=== PATIENT | male | born 1975 | race Caucasian/White ===

== ENCOUNTER → 2017-02-15 | Outpatient (CLI) | payer OTHER ==
--- NOTE | 2017-02-15 22:07 | MR ---
EXAMINATION TYPE: MR brain wo con DATE OF EXAM: 02/15/2017 COMPARISON: NONE HISTORY: 41-year-old male with headache TECHNIQUE: Multiplanar, multisequence images of the brain and brainstem were acquired without IV con trast. Diffusion weighted imaging is performed. FINDINGS: No evidence for acute infarction, hemorrhage, mass, mass effect, midline shift, herniation, effacemen t of basal cisterns, or extra-axial fluid collection. The ventricles and sulci are age-appropriate. Major intracranial flow voids are intact. T2/FLAIR weighted sequences show a solitary 3 mm focus of bright signal in the subcortical right fron randi lobe on axial image 18. This is a nonspecific finding of questionable clinical significance. Midline structures demonstrate normal morphology. The craniocervical junction is normal. Mild mucosal thickening within the ethmoid air cells. Globes are intact. IMPRESSION: 1. No acute intracranial abnormality seen. 2. Solitary 3 mm bright signal focus in the right frontal white matter is of questionable clinical si gnificance. In the setting of chronic migraines, this could represent a small focus of ischemic demye lination.. 3. Mild chronic ethmoid sinus disease. 4. MR angiography reported separately.
--- NOTE | 2017-02-15 22:13 | MR ---
EXAMINATION TYPE: MR angio head wo con DATE OF EXAM: 02/15/2017 COMPARISON: NONE HISTORY: 41-year-old male with Headaches TECHNIQUE: High-resolution 3-D [id number] imaging of the [place]. 3-D rotational reconst ructions generated I dedicated independent workstation. 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 The basilar artery and internal carotid arteries are widely patent. No significant stenosis or arteri al occlusion. Additional congenital variation with an azygos configuration to the anterior cerebral artery. No aneurysmal change is seen particularly at the azygos KIMBER bifurcation. IMPRESSION: 1. 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 2. 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 3. No significant stenosis, arterial occlusion, or aneurysmal change.
== END | disposition home or self-care (01) ==
LOC: RADMRIMAIN 15:10
PROVIDERS: ATTEND Psychiatry & Neurology Neurology
DX: G43.909 Migraine, unspecified, not intractable, without status migrainosus (principal); J32.2 Chronic ethmoidal sinusitis
CPT/HCPCS: 70544; 70551

== ENCOUNTER 2020-05-28 09:50 | Emergency (ER) | payer OTHER ==
[2020-05-28 10:10] VITALS: BP 136/88; PULSE 69; RESP 18; TEMP 98
--- NOTE | 2020-05-28 10:44 | ED ---
General Adult HPI - General Chief complaint: Upper Respiratory Infection Stated complaint: Covid+, SOB Time Seen by Provider: 05/28/20 10:10 Source: patient, RN notes reviewed, old records reviewed Mode of arrival: ambulatory Limitations: no limitations - History of Present Illness Initial comments: This is a 45-year-old male who presents emergency department stating that he was tested positive for COVID 12 days ago. Patient comes in today complaining of a consistent cough and the fact that he can't stop coughing. Patient states she's mild short of breath but nothing significant per patient's chest pain or palpitations. Patient denies abdominal pain patient denies any loss of a smoker patient denies any diarrhea. - Related Data Previous Rx's Medication Instructions Recorded Albuterol Inhaler [Ventolin Hfa 2 puff INHALATION RT-QID #1 puff 05/28/20 Inhaler] Benzonatate [Tessalon Perles] 200 mg PO TID #15 capsule 05/28/20 Allergies Allergy/AdvReac Type Severity Reaction Status Date / Time No Known Allergies Allergy Verified 05/28/20 10:08 Review of Systems ROS Statement: Those systems with pertinent positive or pertinent negative responses have been documented in the HPI. ROS Other: All systems not noted in ROS Statement are negative. Past Medical History Past Medical History: No Reported History History of Any Multi-Drug Resistant Organisms: None Reported Additional Past Surgical History / Comment(s): R ankle Past Psychological History: No Psychological Hx Reported Smoking Status: Never smoker Past Alcohol Use History: None Reported Past Drug Use History: None Reported General Exam - General Exam Comments Initial Comments: GENERAL: Patient is well-developed and well-nourished. Patient is nontoxic and well-h ydrated and is in no acute distress. ENT: Neck is soft and supple. No significant lymphadenopathy is noted. Oropharynx is clear. Moist mucous membranes. Neck has full range of motion without elic iting any pain. EYES: The sclera were anicteric and conjunctiva were pink and moist. Extraocular movements were intact and pupils were equal round and reactive to light. Eyelids were unremarkable. PULMONARY: Unlabored respirations. Good breath sounds bilaterally. No audible rales rhonchi or wheezing was noted. CARDIOVASCULAR: There is a regular rate and rhythm patient is a 2/6 murmur ABDOMEN: Soft and nontender with normal bowel sounds. SKIN: Skin is clear with no lesions or rashes and otherwise unremarkable. NEUROLOGIC: Patient is alert and oriented x3. Cranial nerves II through XII are grossly intact. Motor and sensory are also intact. Normal speech, volume and content. Symmetrical smile. MUSCULOSKELETAL: Normal extremities with adequate strength and full range of motion. LYMPHATICS: No significant lymphadenopathy is noted PSYCHIATRIC: Normal psychiatric evaluation. Limitations: no limitations Course Vital Signs 05/28/20 10:08 Temperature 98 F Pulse Rate 69 Respiratory 18 Rate Blood Pressure 136/88 O2 Sat by Pulse 99 Oximetry Medical Decision Making - Medical Decision Making Chest x-ray shows a little infiltrate in the right base Disposition Clinical Impression: Pneumonia due to COVID-19 virus Disposition: HOME SELF-CARE Condition: Good Instructions (If sedation given, give patient instructions): Coronavirus Disease 2019 (COVID-19) Prescriptions: Benzonatate [Tessalon Perles] 200 mg PO TID #15 capsule Albuterol Inhaler [Ventolin Hfa Inhaler] 2 puff INHALATION RT-QID #1 puff Is patient prescribed a controlled substance at d/c from ED?: No Referrals: None,Stated [Primary Care Provider] - 1-2 days Time of Disposition: 10:44
--- NOTE | 2020-05-28 10:44 | XR ---
EXAMINATION TYPE: XR chest 2V DATE OF EXAM: 05/28/2020 COMPARISON: NONE HISTORY: Chest pain TECHNIQUE: Frontal and lateral views of the chest are obtained. FINDINGS: There is no focal air space opacity. No evidence for pneumothorax. No pleural effusion. The cardiac silhouette size is within normal limits. The osseous structures are grossly intact. IMPRESSION: 1. No acute cardiopulmonary process.
== END 2020-05-28 10:48 | disposition home or self-care (01) ==
LOC: EC 09:50
DX: U07.1 COVID-19 (principal); J12.82 Pneumonia due to coronavirus disease 2019
CPT/HCPCS: 71046; 99284

== ENCOUNTER 2021-06-11 07:24 | Day surgery (SDC) | payer OTHER ==
[2021-06-09 12:04] VITALS: BMI 29.8
[2021-06-11] MEDS ORDERED: SODIUM CHLORIDE 0.9% 500 ML 500 ML IV ONE (07:45)
[2021-06-11 07:50] VITALS: TEMP 99.1
[2021-06-11] MEDS ORDERED: fentaNYL (PF) 50 MCG/ML 2 ML AMP ONE (08:19)
[2021-06-11] MEDS: BENZOCAINE SPRAY 1 CAN MUCOUS MEM ONE ×2 (08:30→08:38)
[2021-06-11] MEDS ORDERED: fentaNYL (PF) 50 MCG/ML 2 ML AMP IVP ONE (08:39)
[2021-06-11] MEDS ORDERED: MIDAZOLAM 2 MG/2 ML VIAL IVP ONE ×2 (08:39→08:41)
--- NOTE | 2021-06-11 09:09 | P.PCN ---
Date of Procedure: 06/11/21 Description of Procedure: Indication: Evaluation of aortic valve Procedure Description: After explaining the procedure to the patient, it's risk and complications, blood pressure, heart rate and O2 saturation were monitored. The throat was sprayed with Cetacaine. Patient received 3 mg intravenous Versed, 50 mcg intravenous fentanyl. The probe was introduced into the esophagus without difficulty. Images were obtained. Following that, the probe was removed. There was no immediate complication. Findings: Left atrial size is mildly dilated, left atrial appendage is normal. Left ventricle size and systolic function are normal. The mitral valve, tricuspid valve are normal. The aortic valve is a bicuspid valve was fused cusp and severe calcification. The aortic valve area by planimetry is 2.2 cm. Ascending aortic size 4.4 cm. Descending thoracic aorta appears to be normal. No pericardial effusion was noted. Contrast bubble study revealed no evidence of shunting across the intra-atrial septum with Valsalva maneuver. Doppler: Pulse wave and color Doppler were obtained and revealed mild mitral and tricuspid regurgitation. Moderate aortic regurgitation was noted was a peak gradient of 45 mmHg and a mean of 27 mmHg. There was no shunting across the intra-atrial septum. Conclusion: 1. Moderately dilated left atrium 2. Normal size and systolic function 3. Bicuspid aortic valve with moderate aortic regurgitation and moderate aortic stenosis 4. Mildly dilated ascending aorta 5. Mild mitral and tricuspid regurgitation
[2021-06-11] MEDS ORDERED: SODIUM CHLORIDE 0.9% 1,000 ML IV SCH (09:15)
[2021-06-11 10:08] VITALS: BP 159/86; PULSE 64; RESP 16
== END 2021-06-11 09:50 | disposition home or self-care (01) ==
LOC: CATHCVL 07:24
PROVIDERS: ATTEND Internal Medicine Interventional Cardiology
DX: Q23.1 Congenital insufficiency of aortic valve (principal); I71.2 Thoracic aortic aneurysm, without rupture; Z20.822 Contact with and (suspected) exposure to COVID-19
CPT/HCPCS: 93312; 93320; 93325; 87635; J2250; J3010

== ENCOUNTER → 2021-06-14 | Outpatient (CLI) | payer OTHER ==
--- NOTE | 2021-06-14 20:34 | CT ---
EXAMINATION TYPE: CT angio chest CT DLP: 1038.90 mGycm, Automated exposure control for dose reduction was used. DATE OF EXAM: 06/14/2021 6:36 PM COMPARISON: None CLINICAL INDICATION:Male, 46 years old with history of I71.2 Thoracic Aortic aneurysm w/o rupture; Th oracic aortic aneurysm TECHNIQUE/CONTRAST: CTA scan of the thorax is performed without and with IV Contrast, patient injected with 100 mL of Iso viral 370, pulmonary embolism protocol. MIP images are created and reviewed. 3-D reformats were creat ed on a separate workstation. FINDINGS: Pulmonary Artery: There is no evidence for a filling defect within the pulmonary vasculature to sugge st acute pulmonary embolism. The pulmonary artery is of normal size. Lungs/Pleura: No evidence of focal consolidation, pleural effusion or pneumothorax. Airway: Large airways are patent. Heart: Heart is mildly enlarged for size there is aortic valve leaflet calcifications Vasculature: Ascending thoracic aorta is dilated measuring up to 4.2 cm. There is mild coronary arter y atherosclerosis changes. Mediastinum: No gross evidence of adenopathy. Musculoskeletal: No acute osseous abnormalities a mild multilevel disc degeneration changes throughou t the spine. Left rib 7 and 8 benign-appearing subcentimeter lucent areas with thin sclerotic rims. Soft Tissues: Mild gynecomastia changes bilaterally. Lower neck: No significant findings. Upper Abdomen: Small splenule is present. IMPRESSION: 1. Mild ascending thoracic aorta ectasia/dilation up to 4.2 cm. 2. Moderate to severe aortic valve leaflet calcifications.
== END | disposition home or self-care (01) ==
LOC: RADCTMAIN 17:45
PROVIDERS: ATTEND Internal Medicine Interventional Cardiology
DX: I77.810 Thoracic aortic ectasia (principal); I70.0 Atherosclerosis of aorta
CPT/HCPCS: 71275; Q9967

== ENCOUNTER → 2022-06-02 | Outpatient (CLI) | payer OTHER ==
--- NOTE | 2022-06-02 15:24 | CT ---
EXAMINATION TYPE: CT angio chest DATE OF EXAM: 06/02/2022 COMPARISON: 06/14/2021 HISTORY: H/O thoracic aorta aneurysm CT DLP: 790.4 mGycm CONTRAST: CTA thoracic aorta with 3-D reconstruction is performed and with IV Contrast, patient injected with 1 00 mL of Isovue 370. Contrast CTA of the thoracic aorta was performed from the lung apex through the upper abdomen. 3D re construction imaging obtained at a separate workstation. CT Chest: THORACIC AORTA: Ascending thoracic aortic aneurysm measuring 4.5 cm AP dimension versus prior measure ment of 4.2 cm. Thoracic aorta is otherwise of normal caliber. Mild atheromatous changes seen. There is no evidence for dissection or periaortic collection. LUNGS: The lungs are clear and free of infiltrate or atelectasis. No pulmonary nodule or mass is det ected. No pleural effusion or CT evidence of interstitial lung disease. MEDIASTINUM: No evidence for mediastinal hematoma. The heart is not enlarged. No evidence for med iastinal mass or adenopathy. Dense calcifications of the aortic valve. HILAR STRUCTURES: No evidence for mass. No hilar adenopathy is appreciated. OTHER: No significant abnormality. IMPRESSION- ascending thoracic aortic aneurysm.
== END | disposition home or self-care (01) ==
LOC: RADCTMAIN 14:14
PROVIDERS: ATTEND Internal Medicine Interventional Cardiology
DX: I71.21 Aneurysm of the ascending aorta, without rupture (principal)
CPT/HCPCS: 71275; Q9967

== ENCOUNTER → 2022-10-11 | Outpatient (CLI) | payer OTHER | END | disposition home or self-care (01) | LOC: LABWHC1 11:33 | PROVIDERS: ATTEND Urology | DX: R97.20 Elevated prostate specific antigen [PSA] (principal) | CPT/HCPCS: 36415; 84153 ==

== ENCOUNTER → 2023-03-15 | Outpatient (CLI) | payer OTHER ==
--- NOTE | 2023-03-17 14:09 | CT ---
CTA CHEST EXAMINATION TYPE: CT angio chest DATE OF EXAM: 03/15/2023 INDICATION: Aortic stenosis thoracic aneurysm CT DLP: 646.40 mGycm, Automated exposure control for dose reduction was used. CONTRAST: Patient injected with 100 ml mL of Isovue 370. COMPARISON: 06/02/2022 TECHNIQUE: CT of the chest is performed on a spiral scan at 2 mm thick sections. Study is performed with intravenous contrast timed for evaluation for pulmonary embolism. This will limit additional po rtions of the evaluation. 3-D MIP images reconstructed by the technologist are reviewed on the compu ter in the coronal and sagittal planes. FINDINGS: No persistent filling defects are evident to suggest an acute pulmonary embolism. No mediastinal or hilar adenopathy enlarged by CT criteria is evident. The ascending aorta diameter at the level of the main pulmonary artery is 4.5 cm. The main pulmonary artery diameter at the bifurcation is 2.5 cm. Aortic root measures 3.4 cm. Transverse dimension of the aortic arch is 3.3 cm. Aorta at the level of the diaphragms is 2.5 cm. Lung windows are clear. Limited CT sections were through the upper abdomen. Upper abdomen appears unremarkable. IMPRESSION: 1. Stable ascending thoracic aortic aneurysm of 4.5 cm.
== END | disposition home or self-care (01) ==
LOC: RADCTMAIN 08:44
PROVIDERS: ATTEND Internal Medicine Interventional Cardiology
DX: I71.21 Aneurysm of the ascending aorta, without rupture (principal); I35.0 Nonrheumatic aortic (valve) stenosis
CPT/HCPCS: 71275; Q9967

== ENCOUNTER 2024-01-15 09:08 | Day surgery (SDC) | payer OTHER ==
[2024-01-11 14:30] VITALS: BMI 29.9
[~2024-01-15 09:08] MED LIST: HYDROmorphone 0.5 MG/0.5 ML SYRINGE IVP PRN; LIDOCAINE 1% (10MG/ML) FOR IV START INTRADERMA PRN; droPERidol 5 MG/2 ML VIAL IVP ONE
[2024-01-15] MEDS: IV FLUID CONTINUATION 1,000 ML IV ONE (09:40)
[2024-01-15] MEDS: ONDANSETRON 4 MG/2 ML VIAL IVP ONE (10:03)
[2024-01-15] MEDS: DEXAMETHASONE SOD PHOSPHATE 4 MG/ML 1 ML VIAL IV ONE (10:03)
[2024-01-15] MEDS: ACETAMINOPHEN TAB 500 MG TAB PO PRN (10:03)
[2024-01-15] MEDS: LACTATED RINGERS 1,000 ML IV SCH (10:04)
[2024-01-15] MEDS: HEPARIN SODIUM,PORCINE 5,000 UNIT/ML 1 ML VIAL SQ PRN (10:04)
--- NOTE | 2024-01-15 11:10 | P.GSHP ---
History of Present Illness H&P Date: 01/15/24 Chief Complaint: Back lipoma x 2 48-year-old male here for excision 2 separate back lesions. 1 in the upper right paramedian location the other is in the left mid back region. Both mildly sore at times. Both increasing in size. No changes since the recent history and physical from a little over a month ago. Past Medical History Past Medical History: Hyperlipidemia Additional Past Medical History / Comment(s): LIPOMAS ON BACK, AORTIC STENOSIS- BEING MONITORED History of Any Multi-Drug Resistant Organisms: None Reported Past Surgical History: Orthopedic Surgery Additional Past Surgical History / Comment(s): R ankle, SAMUEL, Past Anesthesia/Blood Transfusion Reactions: No Reported Reaction Smoking Status: Former smoker - Past Family History Mother Family Medical History: No Reported History Medications and Allergies Home Medications Medication Instructions Recorded Confirmed Type Evolocumab [Repatha Syringe] 0 mg SQ Q14D 01/11/24 01/15/24 History Allergies Allergy/AdvReac Type Severity Reaction Status Date / Time No Known Allergies Allergy Verified 01/15/24 09:37 Surgical - Exam Vital Signs Temp Pulse Resp BP Pulse Ox 97.6 F 66 16 154/82 96 01/15/24 09:47 01/15/24 09:47 01/15/24 09:47 01/15/24 09:47 01/15/24 09:47 Physical exam: General: Well-developed, well-nourished HEENT: Normocephalic, sclerae nonicteric Abdomen: Nontender, nondistended Extremities: No edema, 2 separate palpable masses subcutaneous 1 on the right- hand side measuring 5 x 4 cm 1 on the left-hand side slightly inferior measuring 7 cm Neuro: Alert and oriented Assessment and Plan (1) Lipoma of back Narrative/Plan: 48-year-old male with back lipoma x 2. Will proceed with surgical excision at this time both lesions. Current Visit: Yes Status: Acute Code(s): D17.1 - BENIGN LIPOMATOUS NEOPLASM OF SKIN, SUBCU OF TRUNK SNOMED Code(s): 366887622
[2024-01-15] MEDS ORDERED: SUCCINYLCHOLINE CHLORIDE 200 MG/10 ML VIAL IV ONE (11:13)
[2024-01-15] MEDS ORDERED: fentaNYL (PF) 50 MCG/ML 2 ML AMP ONE (11:13)
[2024-01-15] MEDS ORDERED: MIDAZOLAM 2 MG/2 ML VIAL ONE (11:13)
[2024-01-15] MEDS ORDERED: LIDOCAINE 1% INJ 10MG/ML (20 ML MDV) ONE (11:13)
[2024-01-15] MEDS ORDERED: PROPOFOL 10 MG/ML 20 ML VIAL IV ONE (11:13)
[2024-01-15] MEDS ORDERED: PHENYLEPHRINE 10 MG/ML VIAL ONE (11:13)
[2024-01-15] MEDS ORDERED: ePHEDrine 50 MG/ML 1 ML VIAL ONE (11:13)
[2024-01-15] MEDS ORDERED: WATER FOR INJECTION, STERILE 10 ML VIAL IV ONE (11:13)
[2024-01-15] MEDS: BUPIVACAINE (PF) 0.25% 30 ML VIAL SQ ONE ×2 (11:47→12:21)
[2024-01-15] MEDS: LACTATED RINGERS 1,000 ML IV ONE (11:48)
[2024-01-15] MEDS ORDERED: NALOXONE 0.4 MG/ML 1 ML VIAL IV PRN (12:24)
--- NOTE | 2024-01-15 12:29 | P.OP ---
Date of Procedure: 01/15/24 Procedure(s) Performed: PREOPERATIVE DIAGNOSIS: Lipoma bilateral back POSTOPERATIVE DIAGNOSIS: Same PROCEDURE: Excision bilateral back lipomas with intermediate closure, subfascial SURGEON: Bautista EBL: 5 cc ANESTHESIA: General COMPLICATIONS: None OPERATIVE PROCEDURE: Patient placed in the right decubitus position. The patient's back was prepped and draped sterilely. A horizontal incision was first made overlying the right upper paramedian mass. Dissection through the superficial fat and into the fascia took place using lecture cautery. The patient had a lobulated lipomatous mass measuring 7 x 4 cm. There were multiple pseudopolyps present. This was fully excised using a combination of blunt dis section and cautery. The subcutaneous layers were closed using interrupted 3-0 Vicryl sutures and the skin using a running 4-0 Monocryl subcuticular stitch. The left sided mass was then addressed in a similar fashion. This was slightly more lateral than the right side had been and inferior as well. A horizontal incision was again made overlying this area. Subcutaneous tissues were divided using electrocautery. This was again noted to be intermixed with the muscle of the back. This was excised using both blunt dissection and cautery. This measured 8 x 5 cm in size and again was lobulated in appearance. Both were sent to pathology. Subcutaneous tissues on the left-hand side was closed using 3-0 Vicryl sutures and the skin using a running 4-0 Monocryl subcuticular stitch. Length of intermediate closure was 14 cm. Skin glue and sterile dressings applied to both locations. DISPOSITION: Stable to recovery room
[2024-01-15 12:57] VITALS: TEMP 98
[2024-01-15 13:53] VITALS: BP 137/76; PULSE 87; RESP 18
== END 2024-01-15 14:20 | disposition home or self-care (01) ==
LOC: OR 09:08
PROVIDERS: ATTEND Surgery
DX: D17.1 Benign lipomatous neoplasm of skin and subcutaneous tissue of trunk (principal); E78.5 Hyperlipidemia, unspecified; I35.0 Nonrheumatic aortic (valve) stenosis; Z89.441 Acquired absence of right ankle; Z87.891 Personal history of nicotine dependence
CPT/HCPCS: 21931; J1644; J1100; J0690; J2405; J0665; 88304

== ENCOUNTER → 2024-03-06 | Outpatient (CLI) | payer OTHER ==
--- NOTE | 2024-03-06 16:35 | CT ---
EXAMINATION TYPE: CT angio chest DATE OF EXAM: 03/06/2024 COMPARISON: 03/15/2023 CLINICAL INDICATION: Male, 49 years old with history of I71.20 THORACIC AORTIC ANEURYSM; PHH, Thoraci c aortic aneurysm w.o rupture TECHNIQUE: CTA scan of the thorax is performed with IV Contrast, patient injected with 100 mL of Isovue 370, pul monary embolism protocol. MIP images are created and reviewed. 3-D postprocessing was performed. CT DLP: 932.[address] CTDI: mGy Automated exposure control for dose reduction was used. FINDINGS: There has been interval increase in the aortic root which is increased from 3.4 cm to 4.1 cm. There i s marked calcification of the aortic valve. The graft there is been a significant interval increase i n the ascending thoracic aortic aneurysm which is now 4.8 cm, previously 4.5 cm. There is no pulmonary embolism. There is no mediastinal, hilar or axillary adenopathy. There is moderate cardiomegaly There is no suspicious lung mass or nodule. There is no airspace consolidation or abnormal interstiti al density. There is no pleural effusion or pneumothorax. Limited scanning through the upper abdomen reveals no gross abnormality. No focal osseous lesions are seen. IMPRESSION: 1. Increase in size in both the aortic root which is 4.1 cm with calcification and increase in size i n the thoracic aortic aneurysm which is 4.8 cm. See above. 2. Moderate cardiomegaly. 3. No acute cardiopulmonary disease or pulmonary nodules. [facility], , 03/06/2024 4:32 PM
== END | disposition home or self-care (01) ==
LOC: RADCTMAIN 15:13
PROVIDERS: ATTEND Internal Medicine Interventional Cardiology
DX: I71.20 Thoracic aortic aneurysm, without rupture, unspecified (principal); I51.7 Cardiomegaly
CPT/HCPCS: 71275; Q9967

== ENCOUNTER → 2024-03-28 | Outpatient (CLI) | payer OTHER ==
[2024-03-28 19:05] LABS: HCT 48.5 % (39.6-50.0); HGB 16.2 g/dL (13.0-17.0); MCH 28.1 pg (27.0-32.0); MCHC 33.4 g/dL (32.0-37.0); MCV 84.2 FL (80.0-97.0); NRBC Per 100 WBC 0 X 10*3/uL (0.00-0.01); Platelet Count 256 X 10*3/uL (140-440); RBC 5.76 X 10*6/uL (4.40-5.60); RDW 12.2 % (11.5-14.5); WBC 7.51 X 10*3/uL (4.50-10.00)
[2024-03-28 20:09] LABS: Carbon Dioxide 27.5 mmol/L (21.6-31.8); Chloride 103 mmol/L (96-109); Potassium 5.4 mmol/L (3.5-5.5); Sodium 140 mmol/L (135-145)
== END | disposition home or self-care (01) ==
LOC: LABWHC1 13:41
PROVIDERS: ATTEND Internal Medicine Interventional Cardiology
DX: Z01.812 Encounter for preprocedural laboratory examination (principal); Q23.1 Congenital insufficiency of aortic valve
CPT/HCPCS: 36415; 80051; 82565; 84520; 85027

== ENCOUNTER 2024-04-17 06:19 | Day surgery (SDC) | payer OTHER ==
[2024-04-11 15:24] VITALS: BMI 29.9
[~2024-04-17 06:19] MED LIST changes: -HYDROmorphone 0.5 MG/0.5 ML SYRINGE IVP PRN; -LIDOCAINE 1% (10MG/ML) FOR IV START INTRADERMA PRN; +MIDAZOLAM 2 MG/2 ML VIAL IV PRN; -droPERidol 5 MG/2 ML VIAL IVP ONE; +fentaNYL (PF) 50 MCG/ML 5 ML AMP IVP PRN
[2024-04-17] MEDS ORDERED: BENZOCAINE SPRAY 1 EACH MM PRN (06:30)
[2024-04-17 06:55] VITALS: RESP 16; TEMP 98.6
[2024-04-17] MEDS ORDERED: SODIUM CHLORIDE 0.9% 500 ML 500 ML IV SCH (07:00)
[2024-04-17] MEDS: SODIUM CHLORIDE 0.9% 500 ML 500 ML IV ONE (07:13)
[2024-04-17] MEDS: MIDAZOLAM 2 MG/2 ML VIAL IVP ONE ×2 (07:24→07:28)
[2024-04-17] MEDS: BENZOCAINE SPRAY 1 EACH MM ONE (07:24)
[2024-04-17] MEDS: fentaNYL (PF) 50 MCG/1 ML VIAL IVP ONE (07:26)
--- NOTE | 2024-04-17 07:51 | P.PCN ---
Date of Procedure: 04/17/24 Description of Procedure: Indication: Aortic stenosis Procedure Description: After explaining the procedure to the patient, it's risk and complications, blood pressure, heart rate and O2 saturation were monitored. The throat was sprayed with Cetacaine. Patient received 3 mg intravenous Versed, 50 mcg intra venous fentanyl. The probe was introduced into the esophagus without difficulty. Images were obtained. Following that, the probe was removed. There was no immediate complication. Findings: Left atrial size is normal and left atrial appendage is normal. Left ventricular systolic function is normal. The mitral and tricuspid valve are normal. Aortic valve is a bicuspid valve, severely calcified with reduced opening. Descending thoracic aorta appears to be normal. Ascending aorta is dilated, measuring up to 4.5 cm. No pericardial effusion was noted. Contrast bubble study revealed no shunting across the interatrial septum with Valsalva maneuver. Doppler: Pulse wave and color Doppler were obtained, and revealed mild mitral and tricuspid regurgitation with severe aortic regurgitation. The gradient across the aortic valve appears to be underestimated. No shunting was noted across the interatrial septum. Conclusion: 1. Normal ventricle size and systolic function 2. Bicuspid aortic valve with severe calcifications and severe aortic regurgitation with reduced opening. The gradient appears to be underestimated by Doppler. 3. Mild mitral and tricuspid regurgitation 4. Dilated ascending aorta 5. No shunting across the intra-atrial septum Duration of sedation: 21 minutes
[2024-04-17] MEDS ORDERED: NON FORMULARY DRUG (Evolocumab [Repatha Syringe] 140 MG/ML Each) SQ SCH (08:00)
[2024-04-17 08:42] VITALS: BP 145/80; PULSE 74
[2024-04-17] MEDS ORDERED: ASPIRIN 81 MG PO SCH (09:00)
== END 2024-04-17 09:03 | disposition home or self-care (01) ==
LOC: CATHCVL 06:19
PROVIDERS: ATTEND Internal Medicine Interventional Cardiology
DX: I25.10 Atherosclerotic heart disease of native coronary artery without angina pectoris (principal); I08.2 Rheumatic disorders of both aortic and tricuspid valves; I71.20 Thoracic aortic aneurysm, without rupture, unspecified; I73.9 Peripheral vascular disease, unspecified; F17.210 Nicotine dependence, cigarettes, uncomplicated; I10 Essential (primary) hypertension; E78.2 Mixed hyperlipidemia; Q23.1 Congenital insufficiency of aortic valve; Z79.82 Long term (current) use of aspirin; Z79.899 Other long term (current) drug therapy
CPT/HCPCS: 93312; 93320; 93325; J2250; J3010

== ENCOUNTER 2024-06-17 16:05 | Inpatient (IN) | payer OTHER ==
--- NOTE | 2024-06-17 16:31 | ED ---
General Adult HPI - General Chief complaint: Arrhythmia/Palpitations Stated complaint: Palpitations Time Seen by Provider: 06/17/24 16:12 Source: patient, EMS, RN notes reviewed Mode of arrival: EMS Limitations: no limitations - History of Present Illness Initial comments: Patient is a 49-year-old male present to the emergency department with concern for palpitations. Onset of symptoms was yesterday. Patient feels like his heart is racing. No history of similar symptoms previously. No history of dysrhythmia. INR this morning was 1.3. Patient does see Dr. Cronin. Patient did have recent open heart CABG, valve replacement, mechanical and aortic graft. Patient is having no chest discomfort or dyspnea. No leg pain or leg swelling. - Related Data Home Medications Medication Instructions Recorded Confirmed Evolocumab [Repatha Syringe] 140 mg SQ Q14D 01/11/24 06/17/24 Acetaminophen Tab [Tylenol] 650 mg PO Q6H PRN 06/17/24 06/17/24 Atorvastatin [Lipitor] 10 mg PO DAILY 06/17/24 06/17/24 Furosemide [Lasix] 20 mg PO DAILY 06/17/24 06/17/24 Potassium Chloride [Klor-Con M20] 20 meq PO DAILY 06/17/24 06/17/24 Tamsulosin HCl [Flomax] 0.4 mg PO DAILY 06/17/24 06/17/24 Warfarin [Coumadin] 2.5 mg PO W/SUPPER 06/17/24 06/17/24 carvediloL [Coreg] 25 mg PO BID 06/17/24 06/17/24 Allergies Allergy/AdvReac Type Severity Reaction Status Date / Time No Known Allergies Allergy Verified 06/17/24 16:09 Review of Systems ROS Statement: Those systems with pertinent positive or pertinent negative responses have been documented in the HPI. ROS Other: All systems not noted in ROS Statement are negative. Constitutional: Denies: fever Eyes: Denies: eye pain ENT: Denies: ear pain Respiratory: Denies: cough, dyspnea Cardiovascular: Reports: palpitations. Denies: chest pain Musculoskeletal: Denies: back pain Past Medical History Past Medical History: Hyperlipidemia Additional Past Medical History / Comment(s): LIPOMAS ON BACK, AORTIC STENOSIS- BEING MONITORED History of Any Multi-Drug Resistant Organisms: None Reported Past Surgical History: Orthopedic Surgery Additional Past Surgical History / Comment(s): R ankle, SAMUEL Past Anesthesia/Blood Transfusion Reactions: No Reported Reaction Past Psychological History: No Psychological Hx Reported Smoking Status: Former smoker - Past Family History Mother Family Medical History: No Reported History General Exam Limitations: no limitations General appearance: alert, in no apparent distress Head exam: Present: normocephalic Eye exam: Present: normal appearance Neck exam: Present: normal inspection Respiratory exam: Present: normal lung sounds bilaterally Cardiovascular Exam: Present: tachycardia, irregular rhythm Expanded Peripheral pulses: 2+: Radial (R), Radial (L), Posterior Tibialis (R), Posterior Tibialis (L) GI/Abdominal exam: Present: soft. Absent: tenderness Extremities exam: Present: normal inspection. Absent: pedal edema, calf tende rness Neurological exam: Present: alert Psychiatric exam: Present: normal affect, normal mood Skin exam: Present: normal color Course Vital Signs 06/17/24 06/17/24 06/17/24 16:06 16:58 17:20 Temperature 98.2 F Pulse Rate 151 H 152 H 156 H Respiratory 18 18 18 Rate Blood Pressure 133/98 122/81 111/95 O2 Sat by Pulse 99 96 97 Oximetry 06/17/24 17:44 Temperature Pulse Rate 152 H Respiratory 18 Rate Blood Pressure 109/90 O2 Sat by Pulse 94 L Oximetry EKG Findings - EKG Results: EKG: interpreted by ERMD (Left axis. Poor R wave progression. Nonspecific T waves.) EKG shows: tachycardia, atrial fibrillation Medical Decision Making - Medical Decision Making Was pt. sent in by a medical professional or institution (, PA, AIRCRAFT LAYOUT WORKER, urgent care, hospital, or [facility]...) When possible be specific @ -No Did you speak to anyone other than the patient for history (EMS, parent, family, police, friend...)? What history was obtained from this source @ -No Did you review nursing and triage notes (agree or disagree)? Why? @ -I reviewed and agree with nursing and triage notes Were old charts reviewed (outside hosp., previous admission, EMS record, old EKG, old radiological studies, urgent care reports/EKG's, [facility] records)? Report findings @ -No old charts were reviewed Differential Diagnosis (chest pain, altered mental status, abdominal pain women, abdominal pain men, vaginal bleeding, weakness, fever, dyspnea, syncope, headache, dizziness, GI bleed, back pain, seizure, CVA, palpatations, mental health, musculoskeletal)? @ -Differential Palpitations Ventricular arrhythmias, atrial arrhythmias, myocardial infarction, anemia, thyrotoxicosis, electrolyte imbalance, hypokalemia, pulmonary embolism, pulmonary disease, drugs, alcohol, anxiety, stress.... This is not meant to be an all-inclusive list. EKG interpreted by me (3pts min.). @ -As above X-rays interpreted by me (1pt min.). @ -Chest x-ray shows postoperative changes, small left effusion CT interpreted by me (1pt min.). @ -None done U/S interpreted by me (1pt. min.). @ -None done What testing was considered but not performed or refused? (CT, X-rays, U/S, labs)? Why? @ -None What meds were considered but not given or refused? Why? @ -None Did you discuss the management of the patient with other professionals (professionals i.e. , PA, AIRCRAFT LAYOUT WORKER, lab, RT, psych nurse, social services counselor, excavating contractor, teacher, correctional officer, manager case management)? Give summary @ -Case was discussed with Dr. Sarabia who will admit his patient. He does recommend starting heparin secondary to INR being only 1.1. Was smoking cessation discussed for >3mins.? @ -No Was critical care preformed (if so, how long)? @ -33 minutes critical care time Were there social determinants of health that impacted care today? How? (Home lessness, low income, unemployed, alcoholism, drug addiction, transportation, low edu. Level, literacy, decrease access to med. care, shelter, rehab)? @ -No Was there de-escalation of care discussed even if they declined (Discuss DNR or withdrawal of care, Hospice)? DNR status @ -No What co-morbidities impacted this encounter? (DM, HTN, Smoking, COPD, CAD, Cancer, CVA, ARF, Chemo, Hep., AIDS, mental health diagnosis, sleep apnea, morbid obesity)? @ -Recent CABG/valve replacement/aortic graft Was patient admitted / discharged? Hospital course, mention meds given and route, prescriptions, significant lab abnormalities, going to OR and other pertinent info. @ -Patient presents with new onset A-fib RVR. Darren bagleyip started. Secondary to subtherapeutic INR heparin will also be started. Patient updated on plan. Admission orders written. Cardiology will be placed on consult Undiagnosed new problem with uncertain prognosis? @ -No Drug Therapy requiring intensive monitoring for toxicity (Heparin, Nitro, Insulin, Cardizem)? @ -Cardizem drip, heparin drip Were any procedures done? @ -No Diagnosis/symptom? @ -A-fib with RVR Acute, or Chronic, or Acute on Chronic? @ -Acute Uncomplicated (without systemic symptoms) or Complicated (systemic symptoms)? @ -Default Side effects of treatment? @ -No Exacerbation, Progression, or Severe Exacerbation? @ -No Poses a threat to life or bodily function? How? (Chest pain, [place], [place], pneumonia, PE, COPD, DKA, ARF, appy, cholecystitis, CVA, Diverticulitis, Homicidal, Suicidal, threat to staff... and all critical care pts) @ -Threat to cardiac function - Lab Data Result diagrams: 06/17/24 16:31 06/17/24 16:31 Lab Results 06/17/24 06/17/24 06/17/24 Range/Units 16:31 16:31 16:31 WBC 9.66 (4.50-10.00) 10*3/uL RBC 4.99 (4.40-5.60) 10*6/uL Hgb 14.2 (13.0-17.0) g/dL Hct 41.1 (39.6-50.0) % MCV 82.4 (80.0-97.0) fL MCH 28.5 (27.0-32.0) pg MCHC 34.5 (32.0-37.0) g/dL Plt Count 517 H (140-440) 10*3/uL MPV 9.2 L (9.5-12.2) fL Immature Gran % (Auto) 0.4 % Neutrophils % 73.6 % Lymphocytes % 15.1 % Monocytes % 9.3 % Eosinophils % 1.1 % Basophils % 0.5 % Immature Gran # 0.04 (0.00-0.04) 10*3/uL Neutrophils # 7.10 (1.80-7.70) 10*3/uL Lymphocytes # 1.46 (0.90-5.00) 10*3/uL Monocytes # 0.90 (0.20-1.00) 10*3/uL Eosinophils # 0.11 (0.04-0.35) 10*3/uL Basophils # 0.05 (0.00-0.10) 10*3/uL PT 12.4 (10.0-12.5) sec INR 1.1 (<1.2) APTT 26.3 (22.0-30.0) sec Sodium 137 (137-145) mmol/L Potassium 4.4 (3.5-5.1) mmol/L Chloride 105 (98-107) mmol/L Carbon Dioxide 24 (22-30) mmol/L Anion Gap 8 mmol/L BUN 11 (9-20) mg/dL Creatinine 0.81 (0.66-1.25) mg/dL Est GFR (CKD-EPI)AfAm >90 (>60 ml/min/1.73 sqM) Est GFR (CKD-EPI)NonAf >90 (>60 ml/min/1.73 sqM) Glucose 100 H (74-99) mg/dL Calcium 9.5 (8.4-10.2) mg/dL Magnesium 2.2 (1.6-2.3) mg/dL Total Bilirubin 0.6 (0.2-1.3) mg/dL AST 21 (17-59) U/L ALT 35 (4-49) U/L Alkaline Phosphatase 132 H (38-126) U/L Troponin I (0.000-0.034) ng/mL Total Protein 6.7 (6.3-8.2) g/dL Albumin 3.7 (3.5-5.0) g/dL TSH 1.280 (0.465-4.680) mIU/L 06/17/24 Range/Units 16:31 WBC (4.50-10.00) 10*3/uL RBC (4.40-5.60) 10*6/uL Hgb (13.0-17.0) g/dL Hct (39.6-50.0) % MCV (80.0-97.0) fL MCH (27.0-32.0) pg MCHC (32.0-37.0) g/dL Plt Count (140-440) 10*3/uL MPV (9.5-12.2) fL Immature Gran % (Auto) % Neutrophils % % Lymphocytes % % Monocytes % % Eosinophils % % Basophils % % Immature Gran # (0.00-0.04) 10*3/uL Neutrophils # (1.80-7.70) 10*3/uL Lymphocytes # (0.90-5.00) 10*3/uL Monocytes # (0.20-1.00) 10*3/uL Eosinophils # (0.04-0.35) 10*3/uL Basophils # (0.00-0.10) 10*3/uL PT (10.0-12.5) sec INR (<1.2) APTT (22.0-30.0) sec Sodium (137-145) mmol/L Potassium (3.5-5.1) mmol/L Chloride (98-107) mmol/L Carbon Dioxide (22-30) mmol/L Anion Gap mmol/L BUN (9-20) mg/dL Creatinine (0.66-1.25) mg/dL Est GFR (CKD-EPI)AfAm (>60 ml/min/1.73 sqM) Est GFR (CKD-EPI)NonAf (>60 ml/min/1.73 sqM) Glucose (74-99) mg/dL Calcium (8.4-10.2) mg/dL Magnesium (1.6-2.3) mg/dL Total Bilirubin (0.2-1.3) mg/dL AST (17-59) U/L ALT (4-49) U/L Alkaline Phosphatase (38-126) U/L Troponin I 0.045 H* (0.000-0.034) ng/mL Total Protein (6.3-8.2) g/dL Albumin (3.5-5.0) g/dL TSH (0.465-4.680) mIU/L Critical Care Time Critical Care Time: Yes Disposition Clinical Impression: Atrial fibrillation, Tachycardia Disposition: ADMITTED IP TO THIS HOSP Is patient prescribed a controlled substance at d/c from ED?: No Referrals: Leroy Sarabia MD [Primary Care Provider] - 1-2 days Time of Disposition: 17:53
[2024-06-17 16:44] LABS: Basophils # (A) 0.05 10*3/uL (0.00-0.10); Basophils % (A) 0.5 %; Eosinophils # (A) 0.11 10*3/uL (0.04-0.35); Eosinophils % (A) 1.1 %; HCT 41.1 % (39.6-50.0); HGB 14.2 g/dL (13.0-17.0); Lymphocytes # (A) 1.46 10*3/uL (0.90-5.00); Lymphocytes % (A) 15.1 %; MCH 28.5 pg (27.0-32.0); MCHC 34.5 g/dL (32.0-37.0); MCV 82.4 fL (80.0-97.0); Mean Platelet Volume 9.2 fL (9.5-12.2); Monocytes % (A) 9.3 %; Neutrophils % (A) 73.6 %; Platelet Count 517 10*3/uL (140-440); RBC 4.99 10*6/uL (4.40-5.60); RDW 12.5 % (11.5-14.5); WBC 9.66 10*3/uL (4.50-10.00)
[2024-06-17 16:59] LABS: ALT 35 U/L (4-49); AST 21 U/L (17-59); African American GFR (CKD) >90 (>60 ml/min/1.73 sqM); Albumin 3.7 g/dL (3.5-5.0); Alkaline Phosphatase 132 U/L (38-126); Anion Gap 8 mmol/L; Blood Urea Nitrogen 11 mg/dL (9-20); Calcium 9.5 mg/dL (8.4-10.2); Carbon Dioxide 24 mmol/L (22-30); Chloride 105 mmol/L (98-107); Glucose 100 mg/dL (74-99); Magnesium 2.2 mg/dL (1.6-2.3); Non-African American GFR(CKD) >90 (>60 ml/min/1.73 sqM); Potassium 4.4 mmol/L (3.5-5.1); Sodium 137 mmol/L (137-145); Total Bilirubin 0.6 mg/dL (0.2-1.3); Total Protein 6.7 g/dL (6.3-8.2)
[2024-06-17 17:00] LABS: INR 1.1 (<1.2); Partial Thromboplastin Time 26.3 sec (22.0-30.0); Prothrombin Time 12.4 sec (10.0-12.5)
[2024-06-17] MEDS: DILTIAZEM 5 MG/ML 5 ML VIAL IVP STA (17:02)
[2024-06-17] MEDS: DILTIAZEM 125 MG in DEXTROSE 5% IN WATER 100 ML IV SCH (17:07)
--- NOTE | 2024-06-17 17:39 | XR ---
EXAMINATION TYPE: XR chest 2V DATE OF EXAM: 06/17/2024 5:34 PM COMPARISON: Chest radiographs from 05/28/2020, CTA chest 03/06/2024 TECHNIQUE: XR chest 2V Frontal and lateral views of the chest. CLINICAL INDICATION:Male, 49 years old with history of dysrhythmia; FINDINGS: Lungs/Pleura: Right lung is clear. No pneumothorax. Small left pleural effusion with associated atele ctasis. Pulmonary vascularity: Unremarkable. Heart/mediastinum: Cardiomediastinal silhouette is enlarged. Post surgical changes of the aortic casey ve replacement. Musculoskeletal: No acute osseous pathology. Midline sternotomy wires are noted. IMPRESSION: Small left pleural effusion with associated atelectasis. [facility], , 06/17/2024 5:36 PM
[2024-06-17] MEDS ORDERED: NALOXONE 0.4 MG/ML 1 ML VIAL IV PRN (17:53)
[2024-06-17] MEDS ORDERED: ACETAMINOPHEN TAB 325 MG TAB PO PRN (17:56)
[2024-06-17] MEDS: WARFARIN 3 MG TAB PO ONE (18:36)
[2024-06-17] MEDS: HEPARIN SOD,PORK IN 0.45% NACL 25,000 UNIT in 0.45% NACL 1 250ML.BAG IV SCH (18:48)
[2024-06-17] MEDS: HEPARIN SODIUM 1,000 UN/ML (10ML VL) IV ONE (18:48)
[2024-06-17] MEDS: carvediloL 12.5 MG TAB PO SCH (19:31)
[2024-06-17] MEDS: MAGNESIUM SULFATE-D5W PMX 1 GM in DEXTROSE/WATER 1 100ML.BAG IVPB ONE (19:34)
[2024-06-18 08:40] LABS: Basophils # (A) 0.09 10*3/uL (0.00-0.10); Basophils % (A) 0.9 %; Eosinophils # (A) 0.07 10*3/uL (0.04-0.35); Eosinophils % (A) 0.7 %; HCT 40.7 % (39.6-50.0); HGB 13.5 g/dL (13.0-17.0); Lymphocytes # (A) 1.76 10*3/uL (0.90-5.00); Lymphocytes % (A) 17.5 %; MCHC 33.2 g/dL (32.0-37.0); MCV 84.3 fL (80.0-97.0); Monocytes # (A) 0.83 10*3/uL (0.20-1.00); Monocytes % (A) 8.3 %; Neutrophils # (A) 7.27 10*3/uL (1.80-7.70); Neutrophils % (A) 72.2 %; Platelet Count 472 10*3/uL (140-440); RBC 4.83 10*6/uL (4.40-5.60); RDW 12.8 % (11.5-14.5); WBC 10.06 10*3/uL (4.50-10.00)
[2024-06-18] MEDS: FUROSEMIDE 20 MG TAB PO SCH (08:59)
[2024-06-18] MEDS: TAMSULOSIN 0.4 MG CAP.ER.24H PO SCH (09:01)
[2024-06-18] MEDS: POTASSIUM CHLORIDE ER 20 MEQ TAB.ER PO SCH (09:01)
[2024-06-18] MEDS: ATORVASTATIN 10 MG TAB PO SCH (09:01)
[2024-06-18 09:53] LABS: INR 1.2 (<1.2); Prothrombin Time 13.2 sec (10.0-12.5)
[2024-06-18] MEDS: HEPARIN SODIUM 1,000 UN/ML (10ML VL) IV PRN (10:03)
--- NOTE | 2024-06-18 10:25 | P.CRDCN ---
History of Present Illness History of present illness: HISTORY OF PRESENT ILLNESS: This is a 49-year-old male with a past medical history significant for bicuspid aortic valve with severe AI and severe with recent mechanical aortic valve r eplacement and aortic root replacement along with one-vessel CABG. Patient follows in the office with Dr. Cronin. We have been asked to see the patient in consultation for atrial fibrillation. Patient examined at the bedside. Patient presented to the ER with a chief complaint of palpitations. Patient was found to be in A-fib with RVR. Patient denies any known history of atrial fibrillation. He has since converted to sinus mechanism and is maintaining sinus mechanism this morning. He denies chest pain or pressure. Denies shortness of breath. INR subtherapeutic at 1.2. He has been resumed on Coumadin and initiated on IV heparin. DIAGNOSTICS: - EKG reveals A-fib with RVR - Chest xray small left pleural effusion with associated atelectasis - Laboratory data: WBC 10.06. Hemoglobin 13.5. Platelet count 472. INR 1.2. Sodium 137. Potassium 4.4. BUN 11. Creatinine 0.81. Troponin 0.045. 0.055. 0.046. TSH 1.280. - Current home cardiac medications include Lipitor 10 mg daily, Repatha 140 mg subcu every 14 days, Lasix 20 mg daily, carvedilol 25 mg twice a day, warfarin 2.5 mg with supper - Most recent echocardiogram obtained in March 2024 revealed normal EF, mild TR, bicuspid aortic valve, severe AI, mild MR - Cardiac catheterization history: 03/2024 revealing calcified aortic valve with dilated ascending aorta, severe stenosis in the proximal LAD, mild pulmonary hypertension REVIEW OF SYSTEMS: At the time of my exam: CONSTITUTIONAL: Denies fever or chills. HEENT: Denies blurred vision, vision changes, or eye pain. Denies hemoptysis CARDIOVASCULAR: Denies chest pain. Denies orthopnea. Denies PND. Denies palpitations RESPIRATORY: Denies shortness of breath. GASTROINTESTINAL: Denies abdominal pain. Denies nausea or vomiting. HEMATOLOGIC: Denies bleeding disorders. GENITOURINARY: Denies any blood in urine. SKIN: Denies pruitis. Denies rash. PHYSICAL EXAM: VITAL SIGNS: Reviewed. GENERAL: Well-developed in no acute distress. HEENT: Head is normocephalic. Pupils are equal, round. Sclerae anicteric. Mucous membranes of the mouth are moist. Neck supple. No JVD or thyromegaly LUNGS: Respirations even and unlabored. Lungs essentially clear to auscultation bilaterally. HEART: Regular rate and rhythm. S1 and S2 heard. Mechanical click noted ABDOMEN: Soft. Nondistended. Nontender. EXTREMITIES: Normal range of motion. No clubbing or cyanosis. Peripheral pulses intact. No lower extremity edema NEUROLOGIC: Awake and alert. Oriented x 3. ASSESSMENT: New onset atrial fibrillation with RVR, currently maintaining sinus mechanism Coronary artery disease, s/p one-vessel CABG to the LAD Bicuspid aortic valve; status post mechanical aortic valve replacement and aortic root replacement at [facility] Subtherapeutic INR Hypertension Hyperlipidemia PLAN: Resume home cardiac medications Discontinue IV Cardizem Continue Coumadin. Monitor INR Continue IV heparin until INR is therapeutic Continue telemetry monitoring Further recommendations pending patient course Nurse practitioner note has been reviewed by physician. Signing provider agrees with the documented findings, assessment, and plan of care documented by [employer] as a scribe. Past Medical History Past Medical History: Hyperlipidemia Additional Past Medical History / Comment(s): LIPOMAS ON BACK, AORTIC STENOSIS-BEING MONITORED History of Any Multi-Drug Resistant Organisms: None Reported Past Surgical History: Orthopedic Surgery Additional Past Surgical History / Comment(s): R ankle, SAMUEL Past Anesthesia/Blood Transfusion Reactions: No Reported Reaction Past Psychological History: No Psychological Hx Reported Smoking Status: Former smoker - Past Family History Mother Family Medical History: No Reported History Medications and Allergies Home Medications Medication Instructions Recorded Confirmed Type Evolocumab [Repatha Syringe] 140 mg SQ Q14D 01/11/24 06/17/24 History Acetaminophen Tab [Tylenol] 650 mg PO Q6H PRN 06/17/24 06/17/24 History Atorvastatin [Lipitor] 10 mg PO DAILY 06/17/24 06/17/24 History Furosemide [Lasix] 20 mg PO DAILY 06/17/24 06/17/24 History Potassium Chloride [Klor-Con M20] 20 meq PO DAILY 06/17/24 06/17/24 History Tamsulosin HCl [Flomax] 0.4 mg PO DAILY 06/17/24 06/17/24 History Warfarin [Coumadin] 2.5 mg PO W/SUPPER 06/17/24 06/17/24 History carvediloL [Coreg] 25 mg PO BID 06/17/24 06/17/24 History Allergies Allergy/AdvReac Type Severity Reaction Status Date / Time No Known Allergies Allergy Verified 06/17/24 16:09 Physical Exam Vitals: Vital Signs Temp Pulse Resp BP Pulse Ox 06/18/24 08:58 79 18 118/84 95 06/18/24 07:49 98.2 F 81 18 112/78 94 L 06/18/24 06:01 98.2 F 72 16 103/75 93 L 06/18/24 03:55 91 18 104/80 95 06/17/24 19:29 115 H 18 108/80 100 06/17/24 18:33 131 H 18 107/89 95 06/17/24 18:13 154 H 18 109/73 95 06/17/24 17:44 152 H 18 109/90 94 L 06/17/24 17:20 156 H 18 111/95 97 06/17/24 16:58 152 H 18 122/81 96 06/17/24 16:06 98.2 F 151 H 18 133/98 99 Intake and Output 06/17/24 06/18/24 06/18/24 22:59 06:59 14:59 Intake Total 12.084 91.833 Balance 12.084 91.833 Intake: Intake, IV Titration 12.084 91.833 Amount Diltiazem 125 mg In 12.084 23.333 Dextrose 5% in Water 100 ml @ 5 MG/HR 5 mls/hr IV .Q24H SHERICE Rx#:[id number] Heparin Sod,Pork in 0.45% 68.5 NaCl 25,000 unit In 0.45 % NaCl 1 250ml.bag @ 10. 65 UNITS/KG/HR 10 mls/hr IV .Q24H SHERICE Rx#: [id number] Other: Weight 93.894 kg Results 06/18/24 08:10 06/17/24 16:31 Cardiac Enzymes 06/17/24 06/17/24 06/17/24 Range/Units 16:31 16:31 19:59 AST 21 (17-59) U/L Troponin I 0.045 H* 0.055 H* (0.000-0.034) ng/mL 06/17/24 Range/Units 23:56 AST (17-59) U/L Troponin I 0.046 H* (0.000-0.034) ng/mL Coagulation 06/17/24 06/17/24 Range/Units 16:31 23:56 PT 12.4 (10.0-12.5) sec APTT 26.3 33.4 H (22.0-30.0) sec CBC 06/17/24 06/18/24 Range/Units 16:31 08:10 WBC 9.66 10.06 H (4.50-10.00) 10*3/uL RBC 4.99 4.83 (4.40-5.60) 10*6/uL Hgb 14.2 13.5 (13.0-17.0) g/dL Hct 41.1 40.7 (39.6-50.0) % Plt Count 517 H 472 H (140-440) 10*3/uL Comprehensive Metabolic Panel 06/17/24 Range/Units 16:31 Sodium 137 (137-145) mmol/L Potassium 4.4 (3.5-5.1) mmol/L Chloride 105 (98-107) mmol/L Carbon Dioxide 24 (22-30) mmol/L BUN 11 (9-20) mg/dL Creatinine 0.81 (0.66-1.25) mg/dL Glucose 100 H (74-99) mg/dL Calcium 9.5 (8.4-10.2) mg/dL AST 21 (17-59) U/L ALT 35 (4-49) U/L Alkaline Phosphatase 132 H (38-126) U/L Total Protein 6.7 (6.3-8.2) g/dL Albumin 3.7 (3.5-5.0) g/dL Current Medications Generic Name Dose Route Start Last Admin Trade Name Freq PRN Reason Stop Dose Admin Acetaminophen 650 mg 06/17/24 17:56 Acetaminophen Tab 325 Mg Tab PO Q6H PRN Pain Atorvastatin Calcium 10 mg 06/18/24 09:00 06/18/24 09:01 Atorvastatin 10 Mg Tab PO 10 mg DAILY SHERICE Administration Carvedilol 25 mg 06/17/24 18:30 06/18/24 09:01 Carvedilol 12.5 Mg Tab PO Not Given BID-W/MEALS SHERICE Furosemide 20 mg 04/29/25 09:00 06/18/24 08:59 Furosemide 20 Mg Tab PO 20 mg DAILY SHERICE Administration Heparin Sodium (Porcine) 0 unit 06/17/24 17:53 Heparin Sodium 1,000 Un/Ml (10ml Vl) IV PER PROTOCOL PRN Low PTT Protocol Diltiazem HCl 125 mg/ Dextrose 125 mls @ 5 mls/hr 06/17/24 17:00 06/18/24 06:17 /Water IV 5 mg/hr .Q24H SHERICE 5 mls/hr Titration Protocol 5 MG/HR Heparin Sodium/Sodium Chloride 250 mls @ 10 mls/hr 06/17/24 18:00 06/18/24 01:39 25,000 unit/ Sodium Chloride IV 12.65 units/kg/hr .Q24H SHERICE 11.878 mls/hr Titration Protocol 10.65 UNITS/KG/HR Miscellaneous Information 0 each 06/17/24 18:10 Warfarin Per Pharmacy MISCELLANE DIRECTED PRN PHARMACY DOSING PROTOCOL Naloxone HCl 0.2 mg 06/17/24 17:53 Naloxone 0.4 Mg/Ml 1 Ml Vial IV Q2M PRN Opioid Reversal Potassium Chloride 20 meq 06/18/24 09:00 06/18/24 09:01 Potassium Chloride Er 20 Meq Tab.Er PO 20 meq DAILY SHERICE Administration Tamsulosin HCl 0.4 mg 06/18/24 09:00 06/18/24 09:01 Tamsulosin 0.4 Mg Cap.Er.24h PO 0.4 mg DAILY SHERICE Administration Intake and Output 06/17/24 06/18/24 06/18/24 22:59 06:59 14:59 Intake Total 12.084 91.833 Balance 12.084 91.833 Intake: Intake, IV Titration 12.084 91.833 Amount Diltiazem 125 mg In 12.084 23.333 Dextrose 5% in Water 100 ml @ 5 MG/HR 5 mls/hr IV .Q24H SHERICE Rx#:[id number] Heparin Sod,Pork in 0.45% 68.5 NaCl 25,000 unit In 0.45 % NaCl 1 250ml.bag @ 10. 65 UNITS/KG/HR 10 mls/hr IV .Q24H SHERICE Rx#: [id number] Other: Weight 93.894 kg 06/18/24 08:10 06/17/24 16:31
--- NOTE | 2024-06-18 12:57 | P.HPIM ---
History of Present Illness H&P Date: 06/18/24 Jorge Valles is a 49-year-old male patient who presented to the ER with concerns of palpitations. Patient has a past medical history of aortic root replacement along with one-vessel CABG completed at [facility] a couple weeks ago patient follows with Dr. Cronin in the office,. Patient was found to be in A-fib with RVR patient denies any history of atrial fibrillation. Patient is maintained on Coumadin likely for mechanical valve and was subtherapeutic upon arrival. EKG completed showing atrial flutter tachycardia with RVR rate of 154. Chest x-ray completed showing small left pleural effusion with associated associated atelectasis. Lab work completed showing white blood cell 9.66, hemoglobin 14.2, platelet count 517, INR 1.1 troponin 0.045, 0.055 and 0.046 TSH level 1.280. At this time patient will be admitted patient started on Cardizem and heparin drips. cardiology services consulted. At this time patient is resting comfortably in bed. Patient denies chest pain or shortness of breath. Patient denies nausea vomiting or diarrhea. Patient denies any urinary burning frequency Review of Systems Please refer to HPI otherwise unremarkable Past Medical History Past Medical History: Hyperlipidemia Additional Past Medical History / Comment(s): LIPOMAS ON BACK, AORTIC STENOSIS- BEING MONITORED History of Any Multi-Drug Resistant Organisms: None Reported Past Surgical History: Orthopedic Surgery Additional Past Surgical History / Comment(s): R ankle, SAMUEL Past Anesthesia/Blood Transfusion Reactions: No Reported Reaction Past Psychological History: No Psychological Hx Reported Smoking Status: Former smoker - Past Family History Mother Family Medical History: No Reported History Medications and Allergies Home Medications Medication Instructions Recorded Confirmed Type Evolocumab [Repatha Syringe] 140 mg SQ Q14D 01/11/24 06/17/24 History Acetaminophen Tab [Tylenol] 650 mg PO Q6H PRN 06/17/24 06/17/24 History Atorvastatin [Lipitor] 10 mg PO DAILY 06/17/24 06/17/24 History Furosemide [Lasix] 20 mg PO DAILY 06/17/24 06/17/24 History Potassium Chloride [Klor-Con M20] 20 meq PO DAILY 06/17/24 06/17/24 History Tamsulosin HCl [Flomax] 0.4 mg PO DAILY 06/17/24 06/17/24 History Warfarin [Coumadin] 2.5 mg PO W/SUPPER 06/17/24 06/17/24 History carvediloL [Coreg] 25 mg PO BID 06/17/24 06/17/24 History Allergies Allergy/AdvReac Type Severity Reaction Status Date / Time No Known Allergies Allergy Verified 06/17/24 16:09 Physical Exam Vitals: Vital Signs Temp Pulse Resp BP Pulse Ox 06/18/24 08:58 79 18 118/84 95 06/18/24 07:49 98.2 F 81 18 112/78 94 L 06/18/24 06:01 98.2 F 72 16 103/75 93 L 06/18/24 03:55 91 18 104/80 95 06/17/24 19:29 115 H 18 108/80 100 06/17/24 18:33 131 H 18 107/89 95 06/17/24 18:13 154 H 18 109/73 95 06/17/24 17:44 152 H 18 109/90 94 L 06/17/24 17:20 156 H 18 111/95 97 06/17/24 16:58 152 H 18 122/81 96 06/17/24 16:06 98.2 F 151 H 18 133/98 99 Intake and Output 06/17/24 06/18/24 06/18/24 22:59 06:59 14:59 Intake Total 12.084 91.833 99.775 Balance 12.084 91.833 99.775 Intake: Intake, IV Titration 12.084 91.833 99.775 Amount Diltiazem 125 mg In 12.084 23.333 Dextrose 5% in Water 100 ml @ 5 MG/HR 5 mls/hr IV .Q24H [facility] Rx#:[id number] Heparin Sod,Pork in 0.45% 68.5 99.775 NaCl 25,000 unit In 0.45 % NaCl 1 250ml.bag @ 10. 65 UNITS/KG/HR 10 mls/hr IV .Q24H [facility] Rx#: [id number] Other: Weight 93.894 kg Head normocephalic Neck supple Lungs clear to auscultation bilaterally no wheezing or crackles Heart regular rate and rhythm S1-S2, no rub or gallop Abdomen is soft nontender nondistended positive bowel sounds no hepatosplenomegaly Extremities no edema Neuro alert and orientated to 3 Results CBC & Chem 7: 06/18/24 08:10 06/17/24 16:31 Labs: Abnormal Lab Results - Last 24 Hours (Table) 06/17/24 06/17/24 06/17/24 Range/Units 16:31 16:31 16:31 WBC (4.50-10.00) 10*3/uL Plt Count 517 H (140-440) 10*3/uL MPV 9.2 L (9.5-12.2) fL PT (10.0-12.5) sec INR (<1.2) APTT (22.0-30.0) sec Glucose 100 H (74-99) mg/dL Alkaline Phosphatase 132 H (38-126) U/L Troponin I 0.045 H* (0.000-0.034) ng/mL 06/17/24 06/17/24 06/17/24 Range/Units 19:59 23:56 23:56 WBC (4.50-10.00) 10*3/uL Plt Count (140-440) 10*3/uL MPV (9.5-12.2) fL PT (10.0-12.5) sec INR (<1.2) APTT 33.4 H (22.0-30.0) sec Glucose (74-99) mg/dL Alkaline Phosphatase (38-126) U/L Troponin I 0.055 H* 0.046 H* (0.000-0.034) ng/mL 06/18/24 06/18/24 06/18/24 Range/Units 08:10 08:10 08:10 WBC 10.06 H (4.50-10.00) 10*3/uL Plt Count 472 H (140-440) 10*3/uL MPV 9.0 L (9.5-12.2) fL PT 13.2 H (10.0-12.5) sec INR 1.2 H (<1.2) APTT 34.0 H (22.0-30.0) sec Glucose (74-99) mg/dL Alkaline Phosphatase (38-126) U/L Troponin I (0.000-0.034) ng/mL Assessment and Plan Assessment: 1. New onset atrial fibrillation with RVR 2. Coronary artery disease status post one-vessel CABG to the LAD 3. Bicuspid aortic valve status post mechanical aortic valve replacement and aortic root replacement [facility] 2 weeks ago 4. History of essential hypertension 5 History of hyperlipidemia 6. Subtherapeutic INR DVT prophylaxis heparin drip until INR at therapeutic level. GI prophylax Protonix patient started on Cardizem drip Patient started on IV heparin Repeat labs ordered
[2024-06-18] MEDS: WARFARIN 5 MG TAB PO ONE (16:38)
[2024-06-18] MEDS ORDERED: WARFARIN 2.5 MG TAB PO SCH (17:30)
[2024-06-19] MEDS: PANTOPRAZOLE 40 MG TABLET PO SCH (06:38)
[2024-06-19 07:24] LABS: Basophils # (A) 0.04 10*3/uL (0.00-0.10); Basophils % (A) 0.4 %; Eosinophils # (A) 0.08 10*3/uL (0.04-0.35); Eosinophils % (A) 0.8 %; HGB 12.4 g/dL (13.0-17.0); Lymphocytes # (A) 1.39 10*3/uL (0.90-5.00); Lymphocytes % (A) 13.7 %; MCH 28.6 pg (27.0-32.0); MCHC 34.4 g/dL (32.0-37.0); MCV 83.1 fL (80.0-97.0); Mean Platelet Volume 9.4 fL (9.5-12.2); Monocytes # (A) 0.87 10*3/uL (0.20-1.00); Monocytes % (A) 8.6 %; Neutrophils # (A) 7.74 10*3/uL (1.80-7.70); Neutrophils % (A) 76.1 %; Platelet Count 385 10*3/uL (140-440); RBC 4.33 10*6/uL (4.40-5.60); RDW 12.3 % (11.5-14.5); WBC 10.16 10*3/uL (4.50-10.00)
[2024-06-19 07:38] LABS: INR 1.3 (<1.2); Prothrombin Time 13.8 sec (10.0-12.5)
[2024-06-19 07:42] LABS: ALT 24 U/L (4-49); AST 18 U/L (17-59); African American GFR (CKD) >90 (>60 ml/min/1.73 sqM); Albumin 3.2 g/dL (3.5-5.0); Alkaline Phosphatase 121 U/L (38-126); Anion Gap 6 mmol/L; Blood Urea Nitrogen 15 mg/dL (9-20); Calcium 9.3 mg/dL (8.4-10.2); Carbon Dioxide 27 mmol/L (22-30); Chloride 101 mmol/L (98-107); Glucose 88 mg/dL (74-99); Non-African American GFR(CKD) >90 (>60 ml/min/1.73 sqM); Potassium 3.9 mmol/L (3.5-5.1); Sodium 134 mmol/L (137-145); Total Bilirubin 0.5 mg/dL (0.2-1.3); Total Protein 5.7 g/dL (6.3-8.2)
--- NOTE | 2024-06-19 09:43 | P.PN ---
Subjective HISTORY OF PRESENT ILLNESS: This is a 49-year-old male with a past medical history significant for bicuspid aortic valve with severe AI and severe with recent mechanical aortic valve replacement and aortic root replacement along with one-vessel CABG. Patient follows in the office with Dr. Cronin. We have been asked to see the patient in consultation for atrial fibrillation. Patient examined at the bedside. Patient presented to the ER with a chief complaint of palpitations. Patient was found to be in A-fib with RVR. Patient denies any known history of atrial fibrillation. He has since converted to sinus mechanism and is maintaining sinus mechanism this morning. He denies chest pain or pressure. Denies shortness of breath. INR subtherapeutic at 1.2. He has been resumed on Coumadin and initiated on IV heparin. DIAGNOSTICS: - EKG reveals A-fib with RVR - Chest xray small left pleural effusion with associated atelectasis - Laboratory data: WBC 10.06. Hemoglobin 13.5. Platelet count 472. INR 1.2. Sodium 137. Potassium 4.4. BUN 11. Creatinine 0.81. Troponin 0.045. 0.055. 0.046. TSH 1.280. - Current home cardiac medications include Lipitor 10 mg daily, Repatha 140 mg subcu every 14 days, Lasix 20 mg daily, carvedilol 25 mg twice a day, warfarin 2.5 mg with supper - Most recent echocardiogram obtained in March 2024 revealed normal EF, mild TR, bicuspid aortic valve, severe AI, mild MR - Cardiac catheterization history: 03/2024 revealing calcified aortic valve with dilated ascending aorta, severe stenosis in the proximal LAD, mild pulmonary hypertension 06/19/2024 Patient examined this morning to bedside. Patient currently denies any chest pain or pressure. He denies any shortness of breath. He remains on IV heparin. He is receiving Coumadin. INR today 1.3. PHYSICAL EXAM: VITAL SIGNS: Reviewed. GENERAL: Well-developed in no acute distress. HEENT: Head is normocephalic. Pupils are equal, round. Sclerae anicteric. Mucous membranes of the mouth are moist. Neck supple. No JVD or thyromegaly LUNGS: Respirations even and unlabored. Lungs essentially clear to auscultation bilaterally. HEART: Regular rate and rhythm. S1 and S2 heard. Mechanical click noted ABDOMEN: Soft. Nondistended. Nontender. EXTREMITIES: Normal range of motion. No clubbing or cyanosis. Peripheral pulses intact. No lower extremity edema NEUROLOGIC: Awake and alert. Oriented x 3. ASSESSMENT: New onset atrial fibrillation with RVR, currently maintaining sinus mechanism Coronary artery disease, s/p one-vessel CABG to the LAD Bicuspid aortic valve; status post mechanical aortic valve replacement and aortic root replacement at [facility] Subtherapeutic INR Hypertension Hyperlipidemia PLAN: Continue current cardiac medications Continue Coumadin. Monitor INR Continue IV heparin until INR is therapeutic Continue telemetry monitoring Further recommendations pending patient course Nurse practitioner note has been reviewed by physician. Signing provider agrees with the documented findings, assessment, and plan of care documented by [employer] as a scribe. Objective - Vital Signs Vital signs: Vital Signs Temp 98.5 F 06/19/24 07:58 Pulse 71 06/19/24 07:58 Resp 17 06/19/24 07:58 BP 105/70 06/19/24 07:58 Pulse Ox 94 L 06/19/24 08:25 FiO2 21 06/19/24 08:25 Intake & Output 06/18/24 06/19/24 06/19/24 18:59 06:59 18:59 Intake Total 213.981 80 20 Balance 213.981 80 20 Weight 93.894 kg 94.1 kg Intake: IV 20 80 20 Heparin Sod,Pork in 0.45% 80 NaCl 25,000 unit In 0.45 % NaCl 1 250ml.bag @ 10. 65 UNITS/KG/HR 10 mls/hr IV .Q24H [facility] Rx#: [id number] Invasive Line 1 10 10 Invasive Line 2 10 10 Intake, IV Titration 193.981 Amount Heparin Sod,Pork in 0.45% 193.981 NaCl 25,000 unit In 0.45 % NaCl 1 250ml.bag @ 10. 65 UNITS/KG/HR 10 mls/hr IV .Q24H [facility] Rx#: [id number] - Labs CBC & Chem 7: 06/19/24 06:36 06/19/24 06:36 Labs: Abnormal Lab Results - Last 24 Hours (Table) 06/18/24 06/18/24 06/18/24 Range/Units 08:10 08:10 16:19 WBC (4.50-10.00) 10*3/uL RBC (4.40-5.60) 10*6/uL Hgb (13.0-17.0) g/dL Hct (39.6-50.0) % MPV (9.5-12.2) fL Neutrophils # (1.80-7.70) 10*3/uL PT 13.2 H (10.0-12.5) sec INR 1.2 H (<1.2) APTT 34.0 H 39.3 H (22.0-30.0) sec Sodium (137-145) mmol/L Total Protein (6.3-8.2) g/dL Albumin (3.5-5.0) g/dL 06/18/24 06/19/24 06/19/24 Range/Units 23:03 06:36 06:36 WBC 10.16 H (4.50-10.00) 10*3/uL RBC 4.33 L (4.40-5.60) 10*6/uL Hgb 12.4 L (13.0-17.0) g/dL Hct 36.0 L (39.6-50.0) % MPV 9.4 L (9.5-12.2) fL Neutrophils # 7.74 H (1.80-7.70) 10*3/uL PT 13.8 H (10.0-12.5) sec INR 1.3 H (<1.2) APTT 55.4 H (22.0-30.0) sec Sodium (137-145) mmol/L Total Protein (6.3-8.2) g/dL Albumin (3.5-5.0) g/dL 06/19/24 Range/Units 06:36 WBC (4.50-10.00) 10*3/uL RBC (4.40-5.60) 10*6/uL Hgb (13.0-17.0) g/dL Hct (39.6-50.0) % MPV (9.5-12.2) fL Neutrophils # (1.80-7.70) 10*3/uL PT (10.0-12.5) sec INR (<1.2) APTT (22.0-30.0) sec Sodium 134 L (137-145) mmol/L Total Protein 5.7 L (6.3-8.2) g/dL Albumin 3.2 L (3.5-5.0) g/dL
[2024-06-19 13:08] VITALS: BMI 29.7
--- NOTE | 2024-06-19 13:34 | P.PN ---
Subjective Progress Note Date: 06/19/24 Jorge Valles is a 49-year-old male patient who presented to the ER with concerns of palpitations. Patient has a past medical history of aortic root replacement along with one-vessel CABG completed at [facility] a couple weeks ago patient follows with Dr. Cronin in the office,. Patient was found to be in A-fib with RVR patient denies any history of atrial fibrillation. Patient is maintained on Coumadin likely for mechanical valve and was subtherapeutic upon arrival. EKG completed showing atrial flutter tachycardia with RVR rate of 154. Chest x-ray completed showing small left pleural effusion with associated associated atelectasis. Lab work completed showing white blood cell 9.66, hemoglobin 14.2, platelet count 517, INR 1.1 troponin 0.045, 0.055 and 0.046 TSH level 1.280. At this time patient will be admitted patient started on Cardizem and heparin drips. cardiology services consulted. At this time patient is resting comfortably in bed. Patient denies chest pain or shortness of breath. Patient denies nausea vomiting or diarrhea. Patient denies any urinary burning frequency On 06/19/2024 patient was seen and examined on the medical floor he is alert and oriented x 3 in no apparent distress there is no fever or chills no headache or dizziness no chest pain no shortness of breath no cough no nausea or vomiting no abdominal pain no diarrhea and no urinary symptoms. INR remains subtherapeutic at 1.3 patient remains on IV heparin cardiology are following Objective - Vital Signs Vital signs: Vital Signs Temp 98.5 F 06/19/24 07:58 Pulse 71 06/19/24 07:58 Resp 17 06/19/24 07:58 BP 105/70 06/19/24 07:58 Pulse Ox 94 L 06/19/24 08:25 FiO2 21 06/19/24 08:25 Intake & Output 06/18/24 06/19/24 06/19/24 18:59 06:59 18:59 Intake Total 213.981 80 20 Balance 213.981 80 20 Weight 93.894 kg 94.1 kg Intake: IV 20 80 20 Heparin Sod,Pork in 0.45% 80 NaCl 25,000 unit In 0.45 % NaCl 1 250ml.bag @ 10. 65 UNITS/KG/HR 10 mls/hr IV .Q24H [facility] Rx#: [id number] Invasive Line 1 10 10 Invasive Line 2 10 10 Intake, IV Titration 193.981 Amount Heparin Sod,Pork in 0.45% 193.981 NaCl 25,000 unit In 0.45 % NaCl 1 250ml.bag @ 10. 65 UNITS/KG/HR 10 mls/hr IV .Q24H [facility] Rx#: [id number] - Exam In general patient is alert and oriented x 3 in no apparent distress Head normocephalic and atraumatic Neck supple no JVD no goiter Lungs clear to auscultation bilaterally no wheezing or crackles Heart regular rate and rhythm S1-S2, no rub or gallop Abdomen is soft nontender nondistended positive bowel sounds no hepatosp lenomegaly Extremities no edema Neuro alert and orientated to 3 no gross focal deficit - Labs CBC & Chem 7: 06/19/24 06:36 06/19/24 06:36 Labs: Abnormal Lab Results - Last 24 Hours (Table) 06/18/24 06/18/24 06/19/24 Range/Units 16:19 23:03 06:36 WBC (4.50-10.00) 10*3/uL RBC (4.40-5.60) 10*6/uL Hgb (13.0-17.0) g/dL Hct (39.6-50.0) % MPV (9.5-12.2) fL Neutrophils # (1.80-7.70) 10*3/uL PT 13.8 H (10.0-12.5) sec INR 1.3 H (<1.2) APTT 39.3 H 55.4 H (22.0-30.0) sec Sodium (137-145) mmol/L Total Protein (6.3-8.2) g/dL Albumin (3.5-5.0) g/dL 06/19/24 06/19/24 Range/Units 06:36 06:36 WBC 10.16 H (4.50-10.00) 10*3/uL RBC 4.33 L (4.40-5.60) 10*6/uL Hgb 12.4 L (13.0-17.0) g/dL Hct 36.0 L (39.6-50.0) % MPV 9.4 L (9.5-12.2) fL Neutrophils # 7.74 H (1.80-7.70) 10*3/uL PT (10.0-12.5) sec INR (<1.2) APTT (22.0-30.0) sec Sodium 134 L (137-145) mmol/L Total Protein 5.7 L (6.3-8.2) g/dL Albumin 3.2 L (3.5-5.0) g/dL Assessment and Plan Assessment: 1. New onset atrial fibrillation with RVR 2. Coronary artery disease status post one-vessel CABG to the LAD 3. Bicuspid aortic valve status post mechanical aortic valve replacement and aortic root replacement [facility] 2 weeks ago 4. History of essential hypertension 5 History of hyperlipidemia 6. Subtherapeutic INR DVT prophylaxis heparin drip until INR at therapeutic level. GI prophylax Protonix patient started on Cardizem drip Patient started on IV heparin Repeat labs ordered
[2024-06-19] MEDS: WARFARIN 5 MG TAB PO ONE (16:37)
[2024-06-20 08:01] LABS: INR 1.4 (<1.2); Prothrombin Time 14.8 sec (10.0-12.5)
[2024-06-20 08:34] VITALS: BP 113/73; PULSE 76; RESP 18; TEMP 97.9
--- NOTE | 2024-06-20 09:21 | P.DS ---
Providers Date of admission: 06/17/24 17:55 Expected date of discharge: 06/20/24 Attending physician: Leroy Sarabia Consults: 06/17/24 17:58 Consult Physician Stat Consulting Provider: Greg Cronin Consult Reason/Comments: a fib Do you want consulting provider notified?: Yes Primary care physician: Leroy [facility] Course: Discharge diagnosis 1. New onset atrial fibrillation with RVR 2. Coronary artery disease status post one-vessel CABG to the LAD 3. Bicuspid aortic valve status post mechanical aortic valve replacement and aortic root replacement [facility] 2 weeks ago 4. History of essential hypertension 5 History of hyperlipidemia 6. Subtherapeutic INR Hospital course Jorge Valles is a 49-year-old male patient who presented to the ER with concerns of palpitations. Patient has a past medical history of aortic root replacement along with one-vessel CABG completed at [facility] a couple weeks ago patient follows with Dr. Cronin in the office,. Patient was found to be in A-fib with RVR patient denies any history of atrial fibrillation. Patient is maintained on Coumadin likely for mechanical valve and was subtherapeutic upon arrival. EKG completed showing atrial flutter tachycardia with RVR rate of 154. Chest x-ray completed showing small left pleural effusion with associated associated atelectasis. Lab work completed showing white blood cell 9.66, hemoglobin 14.2, platelet count 517, INR 1.1 troponin 0.045, 0.055 and 0.046 TSH level 1.280. At this time patient will be admitted patient started on Cardizem and heparin drips. cardiology services consulted. At this time patient is resting comfortably in bed. Patient denies chest pain or shortness of breath. Patient denies nausea vomiting or diarrhea. Patient denies any urinary burning frequency On 06/19/2024 patient was seen and examined on the medical floor he is alert and oriented x 3 in no apparent distress there is no fever or chills no headache or dizziness no chest pain no shortness of breath no cough no nausea or vomiting no abdominal pain no diarrhea and no urinary symptoms. INR remains subtherapeutic at 1.3 patient remains on IV heparin cardiology are following On 06/20/2024 patient is alert and oriented x 3. INR remains low at 1.4. Did discuss case with cardiology nurse practitioner will discharge patient home on bridging Lovenox 100 mg twice daily subcu and 5 mg of Coumadin daily. Patient will have INR check on Monday and follow-up with cardiology services. Patient verbalized understanding. At this time patient denies chest pain or shortness of breath. Patient denies nausea vomiting or diarrhea. Patient denies any urinary burning or frequency Patient Condition at Discharge: Stable Plan - Discharge Summary Discharge Rx Participant: No New Discharge Prescriptions: New Enoxaparin [Lovenox] 100 mg SQ Q12H 7 Days #14 each Warfarin [Coumadin] 5 mg PO DAILY 30 Days #30 tab Continue Tamsulosin HCl [Flomax] 0.4 mg PO DAILY carvediloL [Coreg] 25 mg PO BID Furosemide [Lasix] 20 mg PO DAILY Atorvastatin [Lipitor] 10 mg PO DAILY Evolocumab [Repatha Syringe] 140 mg SQ Q14D Acetaminophen Tab [Tylenol] 650 mg PO Q6H PRN PRN Reason: Pain Potassium Chloride [Klor-Con M20] 20 meq PO DAILY Discontinued Warfarin [Coumadin] 2.5 mg PO W/SUPPER Discharge Medication List Evolocumab [Repatha Syringe] 140 mg SQ Q14D 01/11/24 [History] Acetaminophen Tab [Tylenol] 650 mg PO Q6H PRN 06/17/24 [History] Atorvastatin [Lipitor] 10 mg PO DAILY 06/17/24 [History] Furosemide [Lasix] 20 mg PO DAILY 06/17/24 [History] Potassium Chloride [Klor-Con M20] 20 meq PO DAILY 06/17/24 [History] Tamsulosin HCl [Flomax] 0.4 mg PO DAILY 06/17/24 [History] carvediloL [Coreg] 25 mg PO BID 06/17/24 [History] Enoxaparin [Lovenox] 100 mg SQ Q12H 7 Days #14 each 06/20/24 [Rx] Warfarin [Coumadin] 5 mg PO DAILY 30 Days #30 tab 06/20/24 [Rx] Follow up Appointment(s)/Referral(s): Greg Cronin MD [STAFF PHYSICIAN] - 3 Days Leroy Sarabia MD [Primary Care Provider] - 1-2 days [facility] Visiting Nurse, [NON-STAFF] - Ambulatory/Diagnostic Orders: Prothrombin Time INR [LAB.AMB] Time Frame: 06/24/24, Location: None Selected
[2024-06-20] MEDS: WARFARIN 3 MG TAB PO ONE (10:13)
--- NOTE | 2024-06-20 13:12 | P.PN ---
Subjective HISTORY OF PRESENT ILLNESS: This is a 49-year-old male with a past medical history significant for bicuspid aortic valve with severe AI and severe with recent mechanical aortic valve replacement and aortic root replacement along with one-vessel CABG. Patient follows in the office with Dr. Cronin. We have been asked to see the patient in consultation for atrial fibrillation. Patient examined at the bedside. Patient presented to the ER with a chief complaint of palpitations. Patient was found to be in A-fib with RVR. Patient denies any known history of atrial fibrillation. He has since converted to sinus mechanism and is maintaining sinus mechanism this morning. He denies chest pain or pressure. Denies shortness of breath. INR subtherapeutic at 1.2. He has been resumed on Coumadin and initiated on IV heparin. DIAGNOSTICS: - EKG reveals A-fib with RVR - Chest xray small left pleural effusion with associated atelectasis - Laboratory data: WBC 10.06. Hemoglobin 13.5. Platelet count 472. INR 1.2. Sodium 137. Potassium 4.4. BUN 11. Creatinine 0.81. Troponin 0.045. 0.055. 0.046. TSH 1.280. - Current home cardiac medications include Lipitor 10 mg daily, Repatha 140 mg subcu every 14 days, Lasix 20 mg daily, carvedilol 25 mg twice a day, warfarin 2.5 mg with supper - Most recent echocardiogram obtained in March 2024 revealed normal EF, mild TR, bicuspid aortic valve, severe AI, mild MR - Cardiac catheterization history: 03/2024 revealing calcified aortic valve with dilated ascending aorta, severe stenosis in the proximal LAD, mild pulmonary hypertension 06/19/2024 Patient examined this morning to bedside. Patient currently denies any chest pain or pressure. He denies any shortness of breath. He remains on IV heparin. He is receiving Coumadin. INR today 1.3. 06/20/2024 Patient examined this morning at the bedside. Patient currently denies chest pain or pressure. He denies shortness of breath. He remains on IV heparin. INR today 1.4. Patient is hoping to be discharged home today. PHYSICAL EXAM: VITAL SIGNS: Reviewed. GENERAL: Well-developed in no acute distress. HEENT: Head is normocephalic. Pupils are equal, round. Sclerae anicteric. Mucous membranes of the mouth are moist. Neck supple. No JVD or thyromegaly LUNGS: Respirations even and unlabored. Lungs essentially clear to auscultation bilaterally. HEART: Regular rate and rhythm. S1 and S2 heard. Mechanical click noted ABDOMEN: Soft. Nondistended. Nontender. EXTREMITIES: Normal range of motion. No clubbing or cyanosis. Peripheral pulses intact. No lower extremity edema NEUROLOGIC: Awake and alert. Oriented x 3. ASSESSMENT: New onset atrial fibrillation with RVR, currently maintaining sinus mechanism Coronary artery disease, s/p one-vessel CABG to the LAD Bicuspid aortic valve; status post mechanical aortic valve replacement and aortic root replacement at [facility] Subtherapeutic INR Hypertension Hyperlipidemia PLAN: Continue current cardiac medications Patient is anxious to be discharged home today. Patient may be discharged home on Coumadin 5 mg daily along with Lovenox 100 mg twice daily for the next 3 days (Monday, Monday, Monday). Patient to have INR drawn in the office on Monday Further recommendations pending patient course Nurse practitioner note has been reviewed by physician. Signing provider agrees with the documented findings, assessment, and plan of care documented by [employer] as a scribe. Objective - Vital Signs Vital signs: Vital Signs Temp 97.9 F 06/20/24 08:00 Pulse 76 06/20/24 08:00 Resp 18 06/20/24 08:00 BP 113/73 06/20/24 08:00 Pulse Ox 98 06/20/24 08:40 FiO2 21 06/20/24 08:40 Intake & Output 06/19/24 06/20/24 06/20/24 18:59 06:59 18:59 Intake Total 1340.862 180 Balance 1340.862 180 Weight 94.1 kg 93.9 kg Intake: IV 40 Invasive Line 1 20 Invasive Line 2 20 Intake, IV Titration 220.862 Amount Heparin Sod,Pork in 0.45% 220.862 NaCl 25,000 unit In 0.45 % NaCl 1 250ml.bag @ 10. 65 UNITS/KG/HR 10 mls/hr IV .Q24H [facility] Rx#: [id number] Oral 1080 180 Other: Voiding Method Toilet # Voids 4 1 2 - Labs CBC & Chem 7: 06/19/24 06:36 06/19/24 06:36 Labs: Abnormal Lab Results - Last 24 Hours (Table) 06/19/24 06/20/24 Range/Units 23:23 07:09 PT 14.8 H (10.0-12.5) sec INR 1.4 H (<1.2) APTT 50.1 H (22.0-30.0) sec
[2024-06-20] MEDS: ENOXAPARIN 100 MG/ML SYRINGE SQ STA (14:05)
== END 2024-06-20 14:29 | disposition home or self-care (01) | DRG 201 ==
LOC: EC 16:05 → 3SCARD 17:55
PROVIDERS: ADMIT Internal Medicine; ATTEND Internal Medicine
DX: I48.91 Unspecified atrial fibrillation (principal); I48.92 Unspecified atrial flutter; J98.11 Atelectasis; R79.1 Abnormal coagulation profile; E78.5 Hyperlipidemia, unspecified; I10 Essential (primary) hypertension; I77.819 Aortic ectasia, unspecified site; I25.10 Atherosclerotic heart disease of native coronary artery without angina pectoris; I35.2 Nonrheumatic aortic (valve) stenosis with insufficiency; Z79.01 Long term (current) use of anticoagulants; Z79.899 Other long term (current) drug therapy; Z87.891 Personal history of nicotine dependence; Z95.1 Presence of aortocoronary bypass graft; Z95.2 Presence of prosthetic heart valve; Z71.3 Dietary counseling and surveillance
CPT/HCPCS: 36415; 71046; 80053; 83735; 84443; 84484; 85025; 85610; 85730; 93005; 94760; 96365; 96366; 96367; 96368; 99291

== ENCOUNTER 2024-06-23 10:21 | Emergency (ER) | payer OTHER ==
[2024-06-23 10:33] VITALS: RESP 18; TEMP 98.2
--- NOTE | 2024-06-23 10:41 | ED ---
Male Urogenital HPI - General Chief complaint: Urogenital Stated complaint: Urinary Retention Time Seen by Provider: 06/23/24 10:41 Source: patient, family, EMS, RN notes reviewed Mode of arrival: EMS Limitations: no limitations - History of Present Illness Initial comments: 49-year-old male presented the ER via EMS for evaluation of urinary retention. Patient states since last night he has been unable to urinate. Around midnight he did note he started to "dribble urine". He woke up every 30 to 40 minutes to attempt to urinate without any success. Patient is reporting a lower abdominal pressure/discomfort sensation. He denies a history of urinary retention or enlarged prostate. Patient is prescribed Flomax and Lasix as he underwent recent open heart surgery. He was told this may aid with helping things "flow". He denies any recent back injuries or trauma. Denies saddle paresthesias, fevers or history of IV drug abuse. Patient denies concern of STDs or history of. Patient denies any nausea, vomiting, constipation/diarrhea or other complaints at this time. - Related Data Home Medications Medication Instructions Recorded Confirmed Evolocumab [Repatha Syringe] 140 mg SQ Q14D 01/11/24 06/17/24 Acetaminophen Tab [Tylenol] 650 mg PO Q6H PRN 06/17/24 06/17/24 Atorvastatin [Lipitor] 10 mg PO DAILY 06/17/24 06/17/24 Furosemide [Lasix] 20 mg PO DAILY 06/17/24 06/17/24 Potassium Chloride [Klor-Con M20] 20 meq PO DAILY 06/17/24 06/17/24 Tamsulosin HCl [Flomax] 0.4 mg PO DAILY 06/17/24 06/17/24 carvediloL [Coreg] 25 mg PO BID 06/17/24 06/17/24 Previous Rx's Medication Instructions Recorded Enoxaparin [Lovenox] 100 mg SQ Q12H 7 Days #14 each 06/20/24 Warfarin [Coumadin] 5 mg PO DAILY 30 Days #30 tab 06/20/24 Cephalexin [Keflex] 500 mg PO Q6HR #40 cap 06/23/24 Allergies Allergy/AdvReac Type Severity Reaction Status Date / Time No Known Allergies Allergy Verified 06/23/24 10:33 Review of Systems ROS Statement: Those systems with pertinent positive or pertinent negative responses have been documented in the HPI. ROS Other: All systems not noted in ROS Statement are negative. Past Medical History Past Medical History: Hyperlipidemia Additional Past Medical History / Comment(s): LIPOMAS ON BACK, History of Any Multi-Drug Resistant Organisms: None Reported Past Surgical History: Coronary Bypass/CABG, Orthopedic Surgery Additional Past Surgical History / Comment(s): R ankle, SAMUEL, 1Vessel CABG with mechanical valve at [facility] 05/29/24 Past Anesthesia/Blood Transfusion Reactions: No Reported Reaction Past Psychological History: No Psychological Hx Reported Smoking Status: Former smoker Past Alcohol Use History: None Reported Past Drug Use History: None Reported - Past Family History Mother Family Medical History: No Reported History General Exam Limitations: no limitations General appearance: alert, in no apparent distress Respiratory exam: Present: normal lung sounds bilaterally. Absent: respiratory distress, wheezes, rales, rhonchi, stridor Cardiovascular Exam: Present: regular rate, normal rhythm, normal heart sounds. Absent: systolic murmur, diastolic murmur, rubs, gallop, clicks GI/Abdominal exam: Present: soft, tenderness (Mild lower abdomen), normal bowel sounds Neurological exam: Present: alert, oriented X3, CN II-XII intact Skin exam: Present: warm, dry, intact, normal color. Absent: rash Course Vital Signs 06/23/24 06/23/24 06/23/24 10:29 12:07 12:47 Temperature 98.2 F Pulse Rate 82 70 79 Respiratory 18 18 18 Rate Blood Pressure 154/108 125/85 135/88 O2 Sat by Pulse 99 96 96 Oximetry Medical Decision Making - Medical Decision Making Was pt. sent in by a medical professional or institution (, PA, PRINCIPAL AUTOMATION ENGINEER, urgent care, hospital, or assisted...) When possible be specific @ -No Did you speak to anyone other than the patient for history (EMS, parent, family, police, friend...)? What history was obtained from this source @ -Patient's daughter aiding in HPI and past medical history. Did you review nursing and triage notes (agree or disagree)? Why? @ -I reviewed and agree with nursing and triage notes Were old charts reviewed (outside hosp., previous admission, EMS record, old EKG, old radiological studies, urgent care reports/EKG's, assisted records)? Report findings @ -No old charts were reviewed Differential Diagnosis (chest pain, altered mental status, abdominal pain women, abdominal pain men, vaginal bleeding, weakness, fever, dyspnea, syncope, headache, dizziness, GI bleed, back pain, seizure, CVA, palpatations, mental h ealth, musculoskeletal)? @ -UTI, urinary retention, BPH, cauda equina... This list is not meant to be all-inclusive EKG interpreted by me (3pts min.). @ -None done X-rays interpreted by me (1pt min.). @ -None done CT interpreted by me (1pt min.). @ -None done U/S interpreted by me (1pt. min.). @ -None done What testing was considered but not performed or refused? (CT, X-rays, U/S, labs)? Why? @ -None What meds were considered but not given or refused? Why? @ -None Did you discuss the management of the patient with other professionals (professionals i.e. , PA, PRINCIPAL AUTOMATION ENGINEER, lab, RT, psych nurse, social media executive, physical education department chair, teacher, logistics supply officer, welfare case worker)? Give summary @ -No Was smoking cessation discussed for >3mins.? @ -No Was critical care preformed (if so, how long)? @ -No Were there social determinants of health that impacted care today? How? (Homelessness, low income, unemployed, alcoholism, drug addiction, transportation, low edu. Level, literacy, decrease access to med. care, [facility], rehab)? @ -No Was there de-escalation of care discussed even if they declined (Discuss DNR or withdrawal of care, Hospice)? DNR status @ -No What co-morbidities impacted this encounter? (DM, HTN, Smoking, COPD, CAD, Cancer, CVA, ARF, Chemo, Hep., AIDS, mental health diagnosis, sleep apnea, morbid obesity)? @ -None Was patient admitted / discharged? Hospital course, mention meds given and route, prescriptions, significant lab abnormalities, going to OR and other pertinent info. @ -Discharge. 49-year-old male presented the ER via EMS for evaluation of urinary retention. Upon arrival, patient hypertensive vitals otherwise within acceptable limits this improved. Upon my examination, patient resting comfortably in stretcher no signs of acute distress. There is mild lower abdominal tenderness without rebound or guarding. No concern of cauda equina: No back pain/injury. No concern of STD. Postvoid bladder scan 908ml. Walter catheter placed with over 900 mL pale yellow urine output. Urinalysis is concerning of infection with many bacteria and 23 WBCs for which patient will be started on Keflex. Upon reevaluation, patient resting comfortably on stretcher. No signs of acute distress. Patient reporting improvement of abdominal discomfort. Patient educated on urinalysis findings. Patient discharged with Walter catheter in place and instructed to follow-up with urology, referral given. Strict return parameters discussed. Patient discharged in stable condition. Patient verbally expressed understanding and agreement with care plan. Case discussed with ED attending, Dr. Israel. Undiagnosed new problem with uncertain prognosis? @ -No Drug Therapy requiring intensive monitoring for toxicity (Heparin, Nitro, Insulin, Cardizem)? @ -No Were any procedures done? @ -No Diagnosis/symptom? @ -UTI/urinary retention Acute, or Chronic, or Acute on Chronic? @ -Acute Uncomplicated (without systemic symptoms) or Complicated (systemic symptoms)? @ -Uncomplicated Side effects of treatment? @ -No Exacerbation, Progression, or Severe Exacerbation? @ -No Poses a threat to life or bodily function? How? (Chest pain, USA, DC, pneumonia, PE, COPD, DKA, ARF, appy, cholecystitis, CVA, Diverticulitis, Homicidal, Suicidal, threat to staff... and all critical care pts) @ -Low at this time - Lab Data Lab Results 06/23/24 Range/Units 10:55 Urine Color Colorless Urine Appearance Clear (Clear) Urine pH 6.0 (5.0-8.0) Ur Specific [place] 1.009 (1.001-1.035) Urine Protein Negative (Negative) Urine Glucose (UA) Negative (Negative) Urine Ketones Negative (Negative) Urine Blood Small H (Negative) Urine Nitrite Negative (Negative) Urine Bilirubin Negative (Negative) Urine Urobilinogen <2.0 (<2.0) mg/dL Ur Leukocyte Esterase Moderate H (Negative) Urine RBC 7 H (0-5) /hpf Urine WBC 23 H (0-5) /hpf Urine Bacteria Many H (None) /hpf Urine Mucus Few H (None) /hpf Disposition Clinical Impression: Urinary retention, UTI (urinary tract infection) Disposition: HOME SELF-CARE Condition: Stable Instructions (If sedation given, give patient instructions): Urinary Retention in Men (ED), Urinary Tract Infection in Men (ED), Walter Catheter Placement and Care (ED), How to Change a Catheter Drainage Bag (DC) Additional Instructions: Take Keflex as prescribed. Follow-up closely with urology for further evaluation. Return to the ER for any new or worsening concerns. Prescriptions: Cephalexin [Keflex] 500 mg PO Q6HR #40 cap Is patient prescribed a controlled substance at d/c from ED?: No Referrals: Leroy Sarabia MD [Primary Care Provider] - 1-2 days Sundeep Kim MD [STAFF PHYSICIAN] - 1-2 days Time of Disposition: 12:27
[2024-06-23 11:36] LABS: Appearance,Urine Clear (Clear); Bacteria,Urine Many /hpf; Bilirubin,Urine Negative (Negative); Blood,Urine Small (Negative); Color,Urine Colorless; Glucose,Urine (UA) Negative (Negative); Ketones,Urine Negative (Negative); Leukocyte Esterase,Urine Moderate (Negative); Mucus,Urine Few /hpf; Nitrite,Urine Negative (Negative); Protein,Urine Negative (Negative); RBC,Urine 7 /hpf (0-5); Specific Gravity,Urine 1.009 (1.001-1.035); Urobilinogen,Urine <2.0 mg/dL (<2.0); WBC,Urine 23 /hpf (0-5)
[2024-06-23 12:47] VITALS: BP 135/88; PULSE 79
== END 2024-06-23 12:47 | disposition home or self-care (01) ==
LOC: EC 10:21
DX: N39.0 Urinary tract infection, site not specified (principal); R33.9 Retention of urine, unspecified; Z87.891 Personal history of nicotine dependence
CPT/HCPCS: 51702; 51798; 81001; 87086; 99283